=== PATIENT | male | born 1985 | race Caucasian/White ===

== ENCOUNTER 2023-01-29 01:37 | Emergency (ER) | payer OTHER, SELFPAY ==
[2023-01-29] VITALS (12 sets, daily range): BP systolic 125–152; BP diastolic 86–112; PULSE 80–89; RESP 18–87; TEMP 36.2; O2SAT 94–97
--- NOTE | 2023-01-29 01:56 | ED_ITS ---
HPI - General Adult General Chief complaint: Chest Pain Stated complaint: chest pain Time Seen by Provider: 01/29/23 01:55 History of Present Illness HPI narrative: @0100 pt developed left sided chest/ shoulder pain. pain rated 4/10 . Pain is reduced when leaning forward . no reports of trauma. No SOB. 37-year-old man presenting to the emergency department with concern of left- sided chest and shoulder area pain. Generally healthy. Accompanied by his father. Now that he thinks about it had been having including of some discomfort in this area earlier today and had taken a naproxen in the morning. After going to bed he awoke with rather intense pain in the left mid chest mid axillary rib area. Radiates a little bit at times into the left posterior shoulder/back area. Somewhat pleuritic. No Fever. No rash. Little bit better when he leans forward he noticed on the drive over here and demonstrates that here the same today. Does not smoke. No particular trauma. 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 Related Data Home Medications Medication Instructions Recorded Confirmed ubidecarenone-omega 3-vit E 25 1 cap PO ONCE 10/03/22 10/03/22 mg-150 (90-60) mg-200 unit capsule (Co [id number] E-Fish Oil) Previous Rx's Medication Instructions Recorded doxycycline hyclate 100 mg tablet 100 mg PO BID #20 tabs 10/03/22 methylprednisolone 4 mg tablets in See Rx Instructions PO PER PKG DIR 10/03/22 a dose pack (Medrol (Aaron)) #21 ea Allergies Allergy/AdvReac Type Severity Reaction Status Date / Time guaifenesin [From Mucinex] AdvReac Mild feels weird Verified 10/03/22 08:27 penicillins Allergy Mild hives Uncoded 10/03/22 08:27 Review of Systems Status of ROS: Reports: 6 or more systems reviewed and unremarkable except as noted in History and below PFSH PFS Social History Smoking Status: Never smoker How often do you have a drink containing alcohol: never AUDIT-C Alcohol total score: 0 Non-prescribed substance use: denies use Exam Narrative: Exam Narrative: Pleasant. NAD. Breathing easily. Speaking easily. Tanned. Skin is warm and dry without rashes or blisters. Lower extremities are without edema and is well-perfused generally. Lungs are clear. Does seem to be splinting a little bit as if breathing is uncomfortable. Point of pain at the left mid axillary line mid chest is intermittently somewhat reproducible. Heart with regular rate and rhythm without murmur rub or gallop. Subjectively sitting forward he does report some improvement in his discomfort. Abdomen is soft nontender. Not able to reproduce pain along the rib margin either. Const: Vital Signs, click to edit/add: Vital Signs - 24 hr 01/29/23 01:45 01/29/23 02:00 01/29/23 03:00 Temperature 97.2 F L Pulse Rate [Right Pulse Oximeter] 86 82 80 Respiratory Rate 18 18 87 H Blood Pressure [Ri ght Upper Arm] 152/107 H 145/112 H 152/92 H Pulse Oximetry 97 96 96 Oxygen Delivery Me thod Room Air Room Air Documenting provider has reviewed patient's vital signs: yes Course Vital Signs Vital signs: Initial Vital Signs Temperature 97.2 F L 01/29/23 01:45 Temperature Source Temporal Artery Scan 01/29/23 01:45 Pulse Rate 86 01/29/23 01:45 Pulse Rhythm Regular 01/29/23 01:45 Respiratory Rate 18 01/29/23 01:45 Blood Pressure 152/107 H 01/29/23 01:45 Blood Pressure Mean 122 H 01/29/23 01:45 Blood Pressure Position Semi-Fowlers 01/29/23 01:45 Pulse Oximetry 97 01/29/23 01:45 Oxygen Delivery Method Room Air 01/29/23 01:45 Vital Signs Temperature 97.2 F L 01/29/23 01:45 Pulse Rate 86 01/29/23 01:45 Respiratory Rate 18 01/29/23 01:45 Blood Pressure 152/107 H 01/29/23 01:45 Pulse Oximetry 97 01/29/23 01:45 Oxygen Delivery Method Room Air 01/29/23 01:45 Temperature 97.2 F L 01/29/23 01:45 Pulse Rate 89 01/29/23 04:20 Respiratory Rate 87 H 01/29/23 03:00 Blood Pressure 141/94 H 01/29/23 04:01 Pulse Oximetry 95 01/29/23 04:20 Oxygen Delivery Method Room Air 01/29/23 03:00 Medical Decision Making MDM Narrative Medical decision making narrative: This discomfort seems to have some pleuritic component. Certainly pulmonary embolus is in differential. Does not seem to be ischemic cardiac disease but will check labs. Initial EKG is reassuring. Pneumothorax/pneumomediastinum. Pericarditis though also without EKG changes; maybe some subtle slurring of the ST segment. Pleuritis and pneumonia also in differential. Will check labs in line with this differential above. Chest x-ray. While initiating IV apparently Mr. Zayas vaso-vagaled. Recovered quickly. I assessed. Breathing easily. Mentally clear. Heart in regular rhythm. Chest x-ray reviewed by me look to be unremarkable. Labs are reassuring. Unlikely ischemic cardiovascular event here. Normal D-dimer also suggests against pulmonary embolus or vascular disruption. There is no pneumothorax evident. Re-examining still shows improvement with sitting up and leaning forward. I do not hear any pericardial rub. Did receive a L of normal saline and ultimately was uncomfortable enough to request some pain medicine. Was given ibuprofen and 2 tablets of Fowler. I did prior discuss differential with Mr. Faith his father. I think per icarditis most likely. Stable, improved during time in the emergency department. See patient discharge plan Lab Data Lab results reviewed: Yes I reviewed the patient's lab results Labs: Lab Results 01/29/23 01/29/23 01/29/23 Range/Units 02:35 02:50 04:18 WBC 7.98 (4.50-11.00) K/uL RBC 5.67 (4.30-5.90) m/uL Hgb 17.4 (13.5-17.5) gm/dL Hct 49.9 (37.0-53.0) % MCV 88 (80-100) fL MCH 31 (26-34) pg MCHC 35 (32-36) gm/dL RDW Coeff of Juve 11.5 (11.5-15.5) % Plt Count 105 L (140-440) K/uL Neut % (Auto) 73.3 H (42.0-72.0) % Lymph % (Auto) 16.4 L (20-44) % Cocke % (Auto) 7.1 (0.0-11.0) % Eos % (Auto) 2.4 (0.0-7.0) % Baso % (Auto) 0.4 (0.0-3.0) % Neut # (Auto) 5.80 (1.7-7.0) K/uL Lymph # (Auto) 1.30 (0.90-2.90) K/uL Cocke # (Auto) 0.60 (0.00-0.90) K/UL Eos # (Auto) 0.19 (0.00-0.50) K/uL Baso # (Auto) 0.03 (0.00-0.30) K/uL Abs Immat Gran (auto) 0.03 (0.00-0.30) K/uL Imm/Tot Granulo (auto) 0.4 % ESR < 2 L (2-15) mm/hr D-Dimer Quant (PE/DVT) < 0.27 (0.00-0.50) ug/ml Sodium 139 (135-149) mmol/L Potassium 3.8 (3.6-5.1) mmol/L Chloride 106 (96-114) mmol/L Carbon Dioxide 25 (20-32) mmol/L Anion Gap 8 (7-15) mEq/L BUN 19 (5-24) mg/dL Creatinine 0.7 (0.5-1.5) mg/dL Estimated GFR 122 ml/min Glucose 94 (60-115) mg/dL Calcium 9.5 (8.4-10.6) mg/dL Troponin I < 0.01 L (0.01-0.04) ng/mL C-Reactive Protein 0.6 (0.5-1.0) mg/dL NT-Pro-B Natriuret Pep < 20 pg/mL Lab Acknowledgement Test Added POC Troponin I 0.00 L (0.01-0.04) ng/ml ECG Data Attestation: I personally reviewed and interpreted this ECG as follows: (Initial EKG reviewed by me shows normal sinus rhythm rate of 83 without ischemic changes. No ST elevation but there is some slurring of the ST segment) Discharge Plan Discharge Clinical Impression: Pericarditis, Chest pain Patient Disposition: Home w/ Parent or Adult Condition: Improved Additional Instructions: Stay well-hydrated; water is good. Take 400-600 mg of ibuprofen 3 times daily with a little food for the next 6 days. Alternatively could take 375-500 mg of naproxen twice daily over the same time period. This might require a longer period of treatment. May want to schedule follow-up with primary care provider for sometime between 1 and 2 weeks from now if need to consider a longer course or alternate medication. For further stomach protection, as we discussed it, could take a medication like omeprazole 20 mg daily maybe over the next 2 weeks. Return for increasing and uncontrolled pain, persistent difficulty breathing, associated fever. Prescriptions: No Action Co [id number] E-Fish Oil 25-150-200 mg-mg-unit capsule 1 cap PO ONCE doxycycline hyclate 100 mg tablet 100 mg PO BID Qty: 20 0RF methylprednisolone [Medrol (Aaron)] 4 mg tablets,dose pack See Rx Instructions PO PER PKG DIR Qty: 21 0RF Rx Instructions: PO PER PKG DIR Follow Up/Referrals: Trae Calles PA-C [Primary Care Provider] - Stand Alone Forms: [employer] Info Instructions
--- NOTE | 2023-01-29 02:34 | CRLHL7_ITS ---
For Patients: As a result of the Century Cures Act, medical imaging exams and procedure reports are released immediately into your electronic medical record. You may view this report before your referring provider. If you have questions, please contact your health care provider. INDICATION: Chest pain. TECHNIQUE: Chest 2 views. COMPARISON: None. FINDINGS: Cardiovascular and mediastinum: Heart size and vasculature are normal in caliber and appearance. Lungs and pleural spaces: Lungs are clear. No sign of infiltrate or mass. No sign of pleural effusion. No pneumothorax. Bones and soft tissues: No significant findings. IMPRESSION: No acute cardiopulmonary abnormality. Dictated by Jose Miguel Driver MD @ 01/29/2023 3:48:04 AM (Electronically Signed)
[2023-01-29] MEDS: 0.9 % SODIUM CHLORIDE 1000 ml 1,000 ML 2000 ML IV (02:54)
--- NOTE | 2023-01-29 02:54 | ED.NURSE ---
during blood draw, pt reported getting light headed. Pt passed out. staff assist button was pressed, GUILLERMO Michaels assisted with pt. Pt placed in Trendelenburg position, pt woke up and asked what happened. Pt vitals obtained, WNL. informed.
[2023-01-29 02:57] LABS: Basophils Absolute Auto 0.03 K/uL (0.00-0.30); Basophils Percent Auto 0.4 % (0.0-3.0); Eosinophils Absolute Auto 0.19 K/uL (0.00-0.50); Eosinophils Percent Auto 2.4 % (0.0-7.0); Hematocrit 49.9 % (37.0-53.0); Hemoglobin* 17.4 gm/dL (13.5-17.5); Immature Granulocytes Abs Auto 0.03 K/uL (0.00-0.30); Immature Granulocytes Pct Auto 0.4 %; Lymphocytes Percent Auto 16.4 % (20-44); Mean Corpuscular HGB Conc 35 gm/dL (32-36); Mean Corpuscular Hemoglobin 31 pg (26-34); Mean Corpuscular Volume 88 fL (80-100); Monocytes Percent Auto 7.1 % (0.0-11.0); Neutrophils Percent Auto 73.3 % (42.0-72.0); Platelet Count* 105 K/uL (140-440); RDW Coefficient of Variation % 11.5 % (11.5-15.5); Red Blood Count 5.67 m/uL (4.30-5.90); Slide Review Reflex No; White Blood Count* 7.98 K/uL (4.50-11.00)
[2023-01-29 03:09] LABS: Chloride* 106 mmol/L (96-114); Sodium* 139 mmol/L (135-149)
[2023-01-29 03:10] LABS: Potassium* 3.8 mmol/L (3.6-5.1)
[2023-01-29 03:12] LABS: Creatinine* 0.7 mg/dL (0.5-1.5); Estimated Glomerular Filt Rate 122 ml/min
[2023-01-29 03:13] LABS: Anion Gap 8 mEq/L (7-15); Blood Urea Nitrogen* 19 mg/dL (5-24); Calcium* 9.5 mg/dL (8.4-10.6); Carbon Dioxide* 25 mmol/L (20-32); Glucose* 94 mg/dL (60-115)
[2023-01-29 03:16] LABS: C Reactive Protein* 0.6 mg/dL (0.5-1.0)
[2023-01-29 03:24] LABS: D Dimer Quantitative* < 0.27 ug/ml (0.00-0.50)
[2023-01-29 03:25] LABS: NT Pro B Type NatriureticPept* < 20 pg/mL; Troponin I* < 0.01 ng/mL (0.01-0.04)
[2023-01-29] MEDS: HYDROCODONE-ACETAMIN 5-325 MG 1 TAB 2 TAB PO (04:22)
[2023-01-29] MEDS: IBUPROFEN 200 MG TABLET 600 MG PO (04:23)
[2023-01-29 05:15] LABS: Erythrocyte SedimentationRate* < 2 mm/hr (2-15)
== END 2023-01-29 04:35 | disposition home or self-care (01) ==
PROVIDERS: Emergency Provider Family Medicine; PCP Physician Assistant Medical
DX: I31.9 Disease of pericardium, unspecified (principal); R07.9 Chest pain, unspecified
CPT/HCPCS: 36415; 71046; 80048; 83880; 84484; 85025; 85379; 85651; 86140; 93005; 96360; 99284; 99285; A9270; J7030